=== PATIENT | female | born 1955 | race African-American/Black ===

== ENCOUNTER 2020-05-07 15:02 | Emergency (ER) | payer SELFPAY ==
[2020-05-07 15:16] VITALS: BP 129/100; PULSE 65; RESP 16; TEMP 36.2; O2SAT 100
--- NOTE | 2020-05-07 15:32 | ED.DENTAL ---
HPI - Dental/Oral General Chief complaint: Dental/Oral Stated complaint: right side swelling facial Source: patient and RN notes reviewed Mode of arrival: ambulatory Limitations: no limitations History of Present Illness HPI Narrative: This is a 65-year-old -French female that is here today complaining of right-sided facial swelling due to dental decay. According to the patient 1 month ago she went to go get her teeth cleaned by her dentist and approximately 1 week after while eating her tooth broke. Patient states that she is not really feeling any pain but noticed swelling in her face this morning. She called her dentist and her dentist told her that she will first have to take antibiotics before treatment. Patient is here for antibiotic treatment. The patient denies SOB, CP, palpitation, extremity numbness, lightheadedness, dizziness, constipation, diarrhea, chills, fever.. MD Complaint: tooth pain Location: Tooth # Teeth map: 1. Related Data Home Medications Medication Instructions Recorded Confirmed amlodipine [Norvasc] 10 mg PO DAILY 05/07/20 05/07/20 azilsartan medoxomil [Edarbi] 30 mg PO DAILY 05/07/20 05/07/20 citalopram [Celexa] 20 mg PO DAILY 05/07/20 05/07/20 clonidine 0.4 mg TRANSDERMAL WEEKLY 05/07/20 05/07/20 hydralazine 10 mg PO BID 05/07/20 05/07/20 quetiapine [Seroquel] 50 mg PO DAILY 05/07/20 05/07/20 sertraline [Zoloft] 200 mg PO DAILY 05/07/20 05/07/20 Allergies Allergy/AdvReac Type Severity Reaction Status Date / Time morphine Allergy Itching Verified 05/07/20 15:21 Review of Systems Review of Systems: All systems reviewed & are unremarkable except as noted in HPI and below (10 point system review) PMFSH Social History Social History Gender identity (if verbalized by the patient): Female Exam Narrative: Exam Narrative: GENERAL: This is a well-nourished, well-developed patient, in no apparent distress. HEAD: normocephalic, atraumatic. EYES: PERRL. Sclera clear/white. Vision is grossly intact. EARS: External ears normal, auditory canals clear and without drainage, TMs normal without perforation. Hearing grossly intact. NOSE: External nose normal with no obvious nasal discharge, nares without redness, no rhinorrhea. THROAT: Mucous membranes moist, posterior pharynx clear. Edematous gumline on left side near canine 1 at brownish discoloration to canine 1. NECK: Neck supple, non-tender without lymphadenopathy, masses or thyromegaly. CARDIOVASCULAR: Regular rate and rhythm without murmurs, gallops, or rubs. RESPIRATORY: Clear to auscultation. Breath sounds equal bilaterally. No wheezes, rales, or rhonchi. GASTROINTESTINAL: Abdomen soft, non-tender, nondistended. Bowel sounds are active. No hepato-splenomegaly, or palpable masses. No guarding. SKIN: warm, intact with no suspicious lesions or rash, good texture and turgor. NEURO: awake, alert, and oriented to person, place and time. There were no obvious focal neurologic abnormalities. Steady gait EXTREMITIES: Normal range of motion. No edema. No calf tenderness. Negative Homans sign bilaterally. BACK: Nontender without deformity or crepitance. No flank tenderness. Course Course Emergency Course: Patient received clindamycin bid x10d Vital Signs Vital signs: Vital Signs Temperature 97.2 F L 05/07/20 15:16 Pulse Rate 65 05/07/20 15:16 Respiratory Rate 16 05/07/20 15:16 Blood Pressure 129/100 H 05/07/20 15:16 Pulse Oximetry 100 05/07/20 15:16 Temperature 97.2 F L 05/07/20 15:16 Pulse Rate 65 05/07/20 15:16 Respiratory Rate 16 05/07/20 15:16 Blood Pressure 148/86 H 05/07/20 15:34 Pulse Oximetry 100 05/07/20 15:16 Discharge Plan Discharge Clinical Impression: Dental decay Patient Disposition: Home, Self-Care Condition: Stable Instructions: Antibiotic Form, Toothache (ED) Additional Instructions: Follow-up with your dentist after treatment of antibiotics Prescriptions: N
[2020-05-07 15:34] VITALS: BP 148/86
== END 2020-05-07 15:34 | disposition home or self-care (01) ==
PROVIDERS: Emergency Provider Nurse Practitioner; PCP Internal Medicine
DX: K02.9 Dental caries, unspecified (principal)
CPT/HCPCS: 99203; G0463

== ENCOUNTER 2021-01-05 08:56 | Emergency (ER) | payer OTHER, SELFPAY ==
--- NOTE | ~2021-01-05 | XR_ITS ---
XR hand RT min 3V, XR hand LT min 3V 01/05/2021 10:45 Indication: Chronic hand pain Procedure: 3 views of each hand Comparison: No prior studies for comparison. Findings: There is mild bilateral polyarticular osteoarthritis of the hands and wrists. No soft tissu e abnormality. No foreign bodies. Impression: 1: Mild bilateral polyarticular osteoarthritis of the hands and wrists. Reviewed, dictated and finalized at location A. Impression: 1: Mild bilateral polyarticular osteoarthritis of the hands and wrists. Impression: 1: Mild bilateral polyarticular osteoarthritis of the hands and wrists.
--- NOTE | ~2021-01-05 | XR_ITS ---
EXAMINATION: XR shoulder LT min 2V, XR shoulder RT min 2V DATE: 01/05/2021 10:45 INDICATION: Chronic bilateral shoulder pain TECHNIQUE: 1. AP internally and externally rotated, AP oblique externally rotated and axillary views of the left shoulder were obtained. 2. AP internally and externally rotated, AP oblique externally rotated and axillary views of the righ t shoulder were obtained. COMPARISON: None FINDINGS: Normal alignment at both shoulders. No fracture.The bilateral glenohumeral and acromioclavicular braxton nts are normal. Suggestive normal variant bilateral preacromial os acromiale. Soft tissues are unrema rkable. Visualized portions of the lungs are clear. IMPRESSION: Suggestion of bilateral normal variant preacromial os acromiale. Otherwise normal bilateral shoulder radiographs. Reviewed, dictated and finalized at location A. IMPRESSION: Suggestion of bilateral normal variant preacromial os acromiale. Otherwise norm al bilateral shoulder radiographs.
--- NOTE | ~2021-01-05 | XR_ITS ---
XR hip BI 2V w AP pelvis 01/05/2021 10:46 Indication: Chronic bilateral hip pain Procedure: AP pelvis and 2 views each Comparison: No prior studies for comparison Findings: Pelvic rings are intact. Sacral foramen are symmetric. No significant joint space narrowing of the hips. No lytic or blastic lesions. Impression: 1: No acute bone or joint abnormality. Reviewed, dictated and finalized at location A. Impression: 1: No acute bone or joint abnormality.
[2021-01-05 09:01] VITALS: BP 143/82; PULSE 89; RESP 20; TEMP 36.8; O2SAT 100
--- NOTE | 2021-01-05 09:52 | ED.GENADULT ---
HPI - General Adult General Chief complaint: Unspecified Stated complaint: generalized body pain Time Seen by Provider: 01/05/21 09:23 Source: patient Mode of arrival: ambulatory Limitations: no limitations History of Present Illness HPI narrative: This is a 65 year old female that presents to the ER for pain noted over the last couple of weeks. Reports pain in her hands, shoulders, and hips bilaterally. The pain is constant and aching. She has been taking anti-inflammatories with little relief. Pain is worse with movement and relieved with rest. She has not seen her primary yet for this due to insurance reasons. Does report history of osteoarthritis. No recent injuries or trauma. Denies fever, abdominal pain, vomiting, or rash. Related Data Allergies Allergy/AdvReac Type Severity Reaction Status Date / Time aspirin Allergy Unknown Nausea Verified 01/05/21 09:04 codeine Allergy Unknown Itching Verified 01/05/21 09:04 morphine Allergy Unknown Itching Verified 01/05/21 09:04 Review of Systems Review of Systems: Narrative: CONSTITUTIONAL: Denies fever GASTROINTESTINAL: Denies abdominal pain, nausea, vomiting SKIN: Denies rash MUSCULOSKELETAL: Reports back pain, joint pain, and myalgia. NEUROLOGIC: Denies numbness, or weakness. All systems reviewed & are unremarkable except as noted in HPI and below PMFSH Past Medical History Medical History (Updated 01/05/21 @ 11:24 by Emilie Le PA-C) History of gastroesophageal reflux (GERD) History of hypertension Surgical History Surgical History (Updated 01/05/21 @ 09:59 by Emilie Le PA-C) History of hysterectomy Social History Social History (Updated 01/05/21 @ 09:59 by Emilie Le PA-C) Smoking status: Former smoker Exam Narrative: Exam Narrative: GENERAL: Well-appearing, obese, and in no acute distress. HEAD: Normocephalic, atraumatic. EYES: EOMI. CHEST: Clear to auscultation. No respiratory distress. No wheezes rales or rhonchi HEART: Regular rate and rhythm. No murmur heard. Normal peripheral pulses. EXTREMITIES: Normal range of motion. No edema, erythema or obvious deformity. Normal peripheral pulses. Normal sensation SKIN: Warm, dry, no rash. NEURO: No focal deficits. Alert and oriented x3. PSYCH: Normal mood and affect Course Vital Signs Vital signs: Vital Signs Temperature 98.2 F 01/05/21 09:01 Pulse Rate 89 01/05/21 09:01 Respiratory Rate 20 01/05/21 09:01 Blood Pressure 143/82 H 01/05/21 09:01 Pulse Oximetry 100 01/05/21 09:01 Temperature 98.2 F 01/05/21 09:01 Pulse Rate 89 01/05/21 09:01 Respiratory Rate 20 01/05/21 09:01 Blood Pressure 143/82 H 01/05/21 09:01 Pulse Oximetry 100 01/05/21 09:01 Medical Decision Making MDM Narrative Medical decision making narrative: Patient presents to the ER for pain present chronically, worsening over the last couple of weeks. Pain is in the shoulders, hands, and hips. No recent injury or trauma. Her vitals are stable. She is neurologically intact. She is afebrile and nontoxic-appearing. CBC and metabolic panel without concerning findings. Bilateral shoulder x-rays are normal, other than suggestion of bilateral normal variant os acromiale. Hip pelvis x-ray without acute findings. Bilateral hand x-ray shows polyarticular osteoarthritis. Patient updated on case findings. She is stable and felt appropriate for further outpatient evaluation. Instructed to follow-up with her primary care doctor. She can take Tylenol or anti-inflammatories as needed for pain. She was given warnings to return to the ER Vital Signs Vital Signs: Vital Signs Temperature 98.2 F 01/05/21 09:01 Pulse Rate 89 01/05/21 09:01 Respiratory Rate 20 01/05/21 09:01 Blood Pressure 143/82 H 01/05/21 09:01 Pulse Oximetry 100 01/05/21 09:01 Temperature 98.2 F 01/05/21 09:01 Pulse Rate 89 01/05/21 09:01 Respiratory Rate 20 01/05/21 09:01 Blood Pressure 143/82
[2021-01-05 10:15] LABS: Basophils Percent Auto 0.5 % (0.2-1.2); Eosinophils Absolute Auto 0.2 K/mm3 (0-0.3); Hematocrit 42.3 % (37.0-47.0); Hemoglobin 14.2 g/dL (12.0-15.0); Immature Granulocyte Absolute 0.02 K/mm3 (0.00-0.031); Immature Granulocyte Percent A 0.3 % (0-0.5); Lymphocytes Absolute Auto 1.96 K/mm3 (0.9-3.2); Lymphocytes Percent Auto 30.9 % (18.3-44.2); Mean Corpuscular HGB Conc 33.6 g/dl (32-36); Mean Corpuscular Hemoglobin 30.8 pg (26-34); Mean Corpuscular Volume 91.8 fl (80-100); Mean Platelet Volume 10.3 fl (7.4-10.4); Monocytes Absolute Auto 0.5 K/mm3 (0.1-0.6); Monocytes Percent Auto 7.7 % (2.6-8.5); Neutrophils Absolute Auto 3.7 K/mm3 (1.3-6.7); Neutrophils Percent Auto 57.6 % (45.5-73.1); Platelet Count Result 241 k/mm3 (150-375); Red Blood Count 4.61 M/mm3 (4.2-5.4); Red Cell Distribution Width 13.9 % (11.5-14.5); White Blood Count 6.3 K/mm3 (4.5-10.0)
[2021-01-05 10:26] LABS: Alanine Aminotransferase 17 U/L (4-35); Albumin Level 4.2 g/dL (3.5-5.1); Alkaline Phosphatase 71 U/L (38-126); Anion Gap 8 mmol/L (8-16); Aspartate Amino Transferase 22 U/L (14-36); Bilirubin,Total 0.3 mg/dL (0.2-1.3); Blood Urea Nitrogen 21 mg/dL (7-17); CRP 0.6 mg/dL (<1.0); Calcium 9.6 mg/dL (8.4-10.2); Carbon Dioxide 26 mmol/L (22-30); Chloride 106 mmol/L (98-107); Estimated CRCL calculation 77 ml/min; Estimated Glomerular Filt Rate > 60; Glucose 95 mg/dL (65-105); Sodium 140 mmol/L (137-145)
[2021-01-05 11:04] LABS: Erythrocyte Sedimentation Rate 15 mm/hr (0-20)
[2021-01-05] MEDS: ACETAMINOPHEN 500 MG TABLET 1000 MG PO (11:09)
[2021-01-05 11:44] VITALS: BP 144/80; PULSE 62; RESP 18; O2SAT 100
== END 2021-01-05 11:31 | disposition home or self-care (01) ==
PROVIDERS: Physician Assistant; Emergency Provider Emergency Medicine
DX: M19.042 Primary osteoarthritis, left hand (principal); M19.041 Primary osteoarthritis, right hand; M19.032 Primary osteoarthritis, left wrist; M19.031 Primary osteoarthritis, right wrist; I10 Essential (primary) hypertension; K21.9 Gastro-esophageal reflux disease without esophagitis; Z87.891 Personal history of nicotine dependence
CPT/HCPCS: 36415; 73030; 73130; 73521; 80053; 85025; 85652; 86140; 99284; A9270

== ENCOUNTER 2021-07-14 08:50 | Emergency (ER) | payer OTHER, SELFPAY ==
--- NOTE | ~2021-07-14 | XR_ITS ---
XR chest 1V portable 07/14/2021 14:27 Indication: Worsening shortness of breath and cough Procedure: AP portable chest Comparison: No prior studies for comparison. Findings: Borderline heart size. No focal air space disease, pulmonary edema, pleural effusion or faustina pected pneumothorax. There is dextroscoliosis of the thoracic spine. Impression: 1: No acute cardiopulmonary disease. Reviewed, dictated and finalized at location A. ORATOR TYPIST Impression: 1: No acute cardiopulmonary disease.
[2021-07-14 09:14] VITALS: BP 153/86; PULSE 76; RESP 18; TEMP 36.1; O2SAT 100
[2021-07-14 13:54] VITALS: BP 153/93; PULSE 70; RESP 18; O2SAT 100
[2021-07-14 14:13] VITALS: BP 167/94; PULSE 64; RESP 18; O2SAT 100
--- NOTE | 2021-07-14 15:13 | ECG_ITS ---
Measurements Intervals [place] Rate: 63 P: 49 KS: 141 QRS: -12 QRSD: 84 T: 28 QT: 404 QTc: 416 Interpretive Statements SINUS RHYTHM VENTRICULAR PREMATURE COMPLEX POSSIBLE LEFT ATRIAL ENLARGEMENT BASELINE ARTIFACT- I, II, V1 BORDERLINE ECG Electronically Signed On 07-15-2021 7:44:36 [employer] by Leonard Mauro D.O.
[2021-07-14 15:43] LABS: Basophils Percent Auto 0.8 % (0.2-1.2); Eosinophils Absolute Auto 0.1 K/mm3 (0-0.3); Eosinophils Percent Auto 2.6 % (0-4.4); Hematocrit 40.2 % (37.0-47.0); Hemoglobin 13.6 g/dL (12.0-15.0); Immature Granulocyte Absolute 0.01 K/mm3 (0.00-0.031); Immature Granulocyte Percent A 0.2 % (0-0.5); Lymphocytes Absolute Auto 2.13 K/mm3 (0.9-3.2); Lymphocytes Percent Auto 40.1 % (18.3-44.2); Mean Corpuscular HGB Conc 33.8 g/dl (32-36); Mean Corpuscular Hemoglobin 31.1 pg (26-34); Mean Corpuscular Volume 91.8 fl (80-100); Mean Platelet Volume 10.4 fl (7.4-10.4); Monocytes Absolute Auto 0.4 K/mm3 (0.1-0.6); Monocytes Percent Auto 6.8 % (2.6-8.5); Neutrophils Absolute Auto 2.6 K/mm3 (1.3-6.7); Neutrophils Percent Auto 49.5 % (45.5-73.1); Platelet Count Result 218 k/mm3 (150-375); Red Blood Count 4.38 M/mm3 (4.2-5.4); Red Cell Distribution Width 14.9 % (11.5-14.5); White Blood Count 5.3 K/mm3 (4.5-10.0)
[2021-07-14 15:54] LABS: Anion Gap 6 mmol/L (8-16); Blood Urea Nitrogen 7 mg/dL (7-17); Calcium 9.5 mg/dL (8.4-10.2); Carbon Dioxide 29 mmol/L (22-30); Chloride 102 mmol/L (98-107); Estimated CRCL calculation 93 ml/min; Estimated Glomerular Filt Rate > 60; Glucose 103 mg/dL (65-110); Potassium 3.6 mmol/L (3.4-5.0); Sodium 137 mmol/L (137-145)
[2021-07-14 16:03] LABS: NT Pro B Type Natriuretic Pept 499 pg/mL (5-100)
[2021-07-14 16:27] LABS: D Dimer 0.27 ug/mL (<0.48)
--- NOTE | 2021-07-14 16:52 | ED.GENADULT ---
HPI - General Adult General Chief complaint: Shortness of Breath/Dyspnea Stated complaint: sob, onset- few days ago. Time Seen by Provider: 07/14/21 14:13 Source: patient History of Present Illness HPI narrative: 66-year-old with a history of hypertension, asthma here with complaints of shortness of breath for last 1 week. Patient denies any fever or chills has no cough. She states that she has been using Symbicort. No Covid exposure. She denies any chest pain Onset (ago): week(s) (1) Relieving factors: other (Inhalers) Exacerbating factors: none Associated symptoms: denies other symptoms Related Data Allergies Allergy/AdvReac Type Severity Reaction Status Date / Time aspirin Allergy Unknown Nausea Verified 07/14/21 14:16 codeine Allergy Unknown Itching Verified 07/14/21 14:16 morphine Allergy Unknown Itching Verified 07/14/21 14:16 Review of Systems Review of Systems: All systems reviewed & are unremarkable except as noted in HPI and below Constitutional: Constitutional: Reports no additional constitutional complaints Eyes: Eyes: Reports no additional eye complaints Cardiovascular: Cardiovascular: Reports no additional cardiovascular complaints Respiratory: Respiratory: Reports as per HPI Gastrointestinal: Gastrointestinal: Reports no additional gastrointestinal complaints Musculoskeletal: Musculoskeletal: Reports no additional musculoskeletal complaints Integumentary/Breasts: Skin/Breast: Reports system reviewed and no additional complaints, except as docu PMFSH Past Medical History Medical History History of gastroesophageal reflux (GERD) History of hypertension Surgical History Surgical History History of hysterectomy Social History Social History Smoking status: Former smoker Exam Narrative: GENERAL: Well-appearing, well-nourished, and in no acute distress. HEAD: Normocephalic, atraumatic. EYES: PERRLA and EOMI. NECK: Supple. CHEST: Clear to auscultation. No respiratory distress. HEART: Regular rate and rhythm. No murmur heard. Normal peripheral pulses. ABDOMEN: Soft, nontender, nondistended, normal active bowel sounds. EXTREMITIES: Normal range of motion. No edema. SKIN: Warm, dry, no rash. NEURO: No focal deficits. Alert and oriented x3. PSYCH: Normal mood and affect. Course Course Emergency Course: Inform patient about her lab work, EKG and chest x-ray findings her shortness of breath most likely is from asthma. Advised her to continue her medication. She does feel comfortable going home. Vital Signs Vital signs: Vital Signs Temperature 36.1 C L 07/14/21 09:14 Pulse Rate 76 07/14/21 09:14 Respiratory Rate 18 07/14/21 09:14 Blood Pressure 153/86 H 07/14/21 09:14 Pulse Oximetry 100 07/14/21 09:14 Temperature 36.1 C L 07/14/21 09:14 Pulse Rate 64 07/14/21 14:13 Respiratory Rate 18 07/14/21 14:13 Blood Pressure 167/94 H 07/14/21 14:13 Pulse Oximetry 100 07/14/21 14:13 Medical Decision Making Differential Diagnosis Differential Diagnosis: Pneumonia, CHF, PE Vital Signs Vital Signs: Vital Signs Temperature 36.1 C L 07/14/21 09:14 Pulse Rate 76 07/14/21 09:14 Respiratory Rate 18 07/14/21 09:14 Blood Pressure 153/86 H 07/14/21 09:14 Pulse Oximetry 100 07/14/21 09:14 Temperature 36.1 C L 07/14/21 09:14 Pulse Rate 64 07/14/21 14:13 Respiratory Rate 18 07/14/21 14:13 Blood Pressure 167/94 H 07/14/21 14:13 Pulse Oximetry 100 07/14/21 14:13 Lab Data Result diagrams: 07/14/21 15:38 07/14/21 15:38 Labs: Lab Results 07/14/21 07/14/21 07/14/21 Range/Units 15:38 15:38 15:38 WBC 5.3 (4.5-10.0) K/mm3 RBC 4.38 (4.2-5.4) M/mm3 Hgb 13.6 (12.0-15.0) g/dL Hct 40.2 (37.0-47.0) % MCV 91.8 (80-100) fl MCH 31
[2021-07-14 17:10] VITALS: BP 122/70; PULSE 64; RESP 18; O2SAT 99
== END 2021-07-14 17:12 | disposition home or self-care (01) ==
PROVIDERS: Emergency Provider Family Medicine; PCP Family Medicine
DX: J45.901 Unspecified asthma with (acute) exacerbation (principal); I10 Essential (primary) hypertension; K21.9 Gastro-esophageal reflux disease without esophagitis; Z87.891 Personal history of nicotine dependence; I49.3 Ventricular premature depolarization; R94.31 Abnormal electrocardiogram [ECG] [EKG]
CPT/HCPCS: 36415; 71045; 80048; 83880; 85025; 85380; 93005; 99283